=== PATIENT | female | born 1950 | race Caucasian/White ===

== ENCOUNTER 2018-01-24 16:21 | Emergency (ER) | payer OTHER, MEDICARE ==
[~2018-01-24] VITALS: Ht 162.6 cm; Wt 52.9 kg
[2018-01-24 16:33] VITALS: BP 136/69; PULSE 107; RESP 16; TEMP 98.2; O2SAT 88
--- NOTE | 2018-01-24 17:12 | PD ---
HPI Chief Complaint: Cold / Flu Symptoms Time Seen by Provider: 17:07 Travel History International Travel<30 days: No Contact w/Intl Traveler<30days: No Traveled to known affect area: No History of Present Illness HPI 67-year-old female patient with history of smoking, presents to the ER today for several days of shortness of breath, dyspnea on exertion, coughing with brownish phlegm. She denies any fevers, but states she has been having bilateral lower chest pains which hurts with deep breaths and movements. She states that she had recently visited her son and [place] and she states that they had a lot of cats. She does not know of any sick contacts. Modifying Factors: None Associated Signs & Symptoms: Chest discomfort, dyspnea on exertion, coughing Risk Factors: Recent trip to [facility] Past Medical History Medical History: Denies Significant Hx Diminished Hearing: No Tetanus Vaccination: Unknown Influenza Vaccination: No ?: Not Past Surgical History Abdominal Surgery: Yes (HERNIA SURG A CHILD ) Hysterectomy: Yes Tonsillectomy: Yes Social History Alcohol Use: No Tobacco Use: Yes (1PPD) Substance Use: No Allergies-Medications (Allergen,Severity, Reaction): Coded Allergies: No Known Allergies (Unverified Allergy, Unknown, 01/24/18) Reported Meds & Prescriptions Reported Meds & Active Scripts Active No Active Prescriptions or Reported Medications Review of Systems Except as stated in HPI: all other systems reviewed are Neg Physical Exam Narrative GENERAL: Well-developed elderly female patient currently in mild distress. Awake and oriented 3. SKIN: Focused skin assessment warm/dry. HEAD: Atraumatic. Normocephalic. EYES: Pupils equal and round. No scleral icterus. No injection or drainage. ENT: No nasal bleeding or discharge. Mucous membranes pink and moist. NECK: Trachea midline. No JVD. CARDIOVASCULAR: Regular rate and rhythm. No murmur appreciated. RESPIRATORY: No accessory muscle use. Decreased throughout with no crackles or wheezes. Breath sounds equal bilaterally. GASTROINTESTINAL: Abdomen soft, non-tender, nondistended. Hepatic and splenic margins not palpable. MUSCULOSKELETAL: No obvious deformities. No clubbing. No cyanosis. No edema. NEUROLOGICAL: Awake and alert. No obvious cranial nerve deficits. Motor grossly within normal limits. Normal speech. PSYCHIATRIC: Appropriate mood and affect; insight and judgment normal. Data Data Last Documented VS Vital Signs Date Time Temp Pulse Resp B/P (MAP) Pulse Ox O2 Delivery O2 Flow Rate FiO2 01/24/18 19:08 88 Room Air 01/24/18 17:42 2.00 01/24/18 16:33 98.2 107 16 136/69 (91) Orders Orders Complete Blood Count With Diff (01/24/18 17:07) Comprehensive Metabolic Panel (01/24/18 17:07) B-Type Natriuretic Peptide (01/24/18 17:07) D-Dimer (01/24/18 17:07) Ckmb (Isoenzyme) Profile (01/24/18 17:07) Troponin I (01/24/18 17:07) Iv Access Insert/Monitor (01/24/18 17:07) Electrocardiogram (01/24/18 17:07) Ecg Monitoring (01/24/18 17:07) Oximetry (01/24/18 17:07) Oxygen Administration (01/24/18 17:07) Chest, Single Ap (01/24/18 17:07) Sodium Chloride 0.9% Flush (Ns Flush) (01/24/18 17:15) Methylprednisolone So Succ Inj (Solumedr (01/24/18 17:15) Albuterol-Ipratropium Neb (Duoneb Neb) (01/24/18 17:15) Potassium Chloride (Kcl) (01/24/18 18:15) Ct Pulmonary Angiogram (01/24/18 18:03) Iohexol 350 Inj (Omnipaque 350 Inj) (01/24/18 18:53) Ed Discharge Order (01/24/18 19:23) Labs Laboratory Tests Test 01/24/18 17:00 White Blood Count 9.6 TH/MM3 Red Blood Count 3.76 MIL/MM3 Hemoglobin 12.1 GM/DL Hematocrit 35.3 % Mean Corpuscular Volume 94.1 FL Mean Corpuscular Hemoglobin 32.3 PG Mean Corpuscular Hemoglobin Concent 34.3 % Red Cell Distribution Width 12.2 % Platelet Count 216 TH/MM3 Mean Platelet Volume 8.4 FL Neutrophils (%) (Auto) 77.7 % Lymphocytes (%) (Auto) 12.1 % Monocytes (%) (Auto) 6.6 % Eosinophils (%) (Auto) 1.0 % Basophils (%) (Auto) 2.6 % Neutrophils # (Auto) 7.4 TH/MM3 Lymphocytes # (Auto) 1.2 TH/MM3 Monocytes # (Auto) 0.6 TH/MM3 Eosinophils # (Auto) 0.1 TH/MM3 Basophils # (Auto) 0.3 TH/MM3 CBC Comment DIFF FINAL Differential Comment D-Dimer Quantitative (PE/DVT) 2.61 MG/L FEU Blood Urea Nitrogen 18 MG/DL Creatinine 0.76 MG/DL Random Glucose 105 MG/DL Total Protein 7.3 GM/DL Albumin 3.0 GM/DL Calcium Level 8.9 MG/DL Alkaline Phosphatase 91 U/L Aspartate Amino Transf (AST/SGOT) 14 U/L Alanine Aminotransferase (ALT/SGPT) 10 U/L Total Bilirubin 0.7 MG/DL Sodium Level 136 MEQ/L Potassium Level 3.0 MEQ/L Chloride Level 97 MEQ/L Carbon Dioxide Level 32.5 MEQ/L Anion Gap 7 MEQ/L Estimat Glomerular Filtration Rate 76 ML/MIN Total Creatine Kinase 86 U/L Troponin I LESS THAN 0.02 NG/ML B-Type Natriuretic Peptide 28 PG/ML MDM Medical Decision Making Medical Screen Exam Complete: Yes Emergency Medical Condition: Yes Medical Record Reviewed: Yes Interpretation(s) EKG shows NSR, no ST elevation or depression, and no arrhythmias. No significant T-wave inversions. Laboratory Tests Test 01/24/18 17:00 Red Blood Count 3.76 MIL/MM3 (4.00-5.30) Neutrophils (%) (Auto) 77.7 % (16.0-70.0) Basophils (%) (Auto) 2.6 % (0.0-2.0) Basophils # (Auto) 0.3 TH/MM3 (0-0.2) D-Dimer Quantitative (PE/DVT) 2.61 MG/L FEU (0.00-0.50) Albumin 3.0 GM/DL (3.4-5.0) Aspartate Amino Transf (AST/SGOT) 14 U/L (15-37) Potassium Level 3.0 MEQ/L (3.5-5.1) Chloride Level 97 MEQ/L (98-107) Carbon Dioxide Level 32.5 MEQ/L (21.0-32.0) Estimat Glomerular Filtration Rate 76 ML/MIN (>89) Troponin I LESS THAN 0.02 NG/ML Last [address] Angiography 01/24/183 Signed Impressions: Service Date/Time: January 18:43 - CONCLUSION: No evidence of pulmonary embolism. Prevascular, pretracheal and precarinal mediastinal lymphadenopathy of indeterminate etiology. Scattered emphysematous changes and fibrotic scarring. Cardiomegaly and coronary artery calcifications. Biapical pleural thickening and scarring. Jeronimo Carter MD Chest X-Ray 01/24/18 1707 Signed Impressions: Service Date/Time: January 17:14 - CONCLUSION: Normal examination. Mild hyperinflation Edouard Gage MD Differential Diagnosis Dyspnea on exertion, chest discomfort, coughing: URI versus bronchitis versus pneumonia versus COPD versus PE Narrative Course Chest x-ray did not show any signs of acute pulmonary processes. Patient was given Solu-Medrol and nebulizers in the ER. On reevaluation at 6:30 PM, she reports feeling much improved and feels like her shortness of breath is gone away. However, when her oxygen is taken off, her saturations dipped into the high 80s. Her lab work did show an elevated d-dimer and considering her recent trip driving to [place], a CTA was ordered for further evaluation. It did not show any signs of PE. She did have some nonspecific lymphadenopathy around the mediastinum of uncertain etiology. At this point, I have discussed the findings with her and she will need to get follow-up evaluation CAT scans with primary care doctor for the adenopathy. She was ambulatory in the ER and feeling well even though her saturations do drop to the high 80s when she walks. She is not in significant distress after the walk-in I suspect that she may have some underlying chronic COPD. I have discussed smoking cessation with the patient. She will be released at this time, states she wants to go home and is feeling better, to follow-up with primary care physician. She should return for any worsening in symptoms. The plan has been discussed with her and she states understanding. Diagnosis Primary Impression: Tobacco abuse Additional Impressions: Mediastinal lymphadenopathy Bronchitis Med/Other Pt SpecificInfo: Prescription(s) given Scripts Prednisone (Prednisone) 50 Mg Tab 50 MG PO DAILY for 5 Days, #5 TAB 0 Refills Prov: Carolyn Mock MD 01/24/18 Albuterol 6.7 GM Inh (Proventil Hfa 6.7 GM Inh) 90 Mcg/Act Aer 2 PUFF INH Q4-6H Y for SHORTNESS OF BREATH, #1 INHALER 0 Refills Prov: Carolyn Mock MD 01/24/18 Azithromycin (Zithromax Z-Kade) 250 Mg Dspk 250 MG PO DIRECTED for Infection, #1 DSPK 0 Refills 500 MG (2 tabs) day 1, then 1 tab days 2-5. Prov: Carolyn Mock MD 01/24/18 Disposition: 01 DISCHARGE HOME Condition: Stable Carolyn Mock MD Jan 24, 2018 17:12
[2018-01-24] MEDS ORDERED: SODIUM CHLORIDE 0.9% FLUSH 10 ML FLUSH IVF PRN (17:15)
[2018-01-24] MEDS ORDERED: methylPREDNISolone SOD SUCC 125 MG/2 ML VIAL IV PUSH ONE (17:15)
[2018-01-24 17:20] LABS: AUTOMATED NEUTROPHIL # 7.4 TH/MM3 (1.8-7.7); BASOPHIL # 0.3 TH/MM3 (0-0.2); BASOPHIL % 2.6 % (0.0-2.0); EOSINOPHIL # 0.1 TH/MM3 (0-0.4); HEMATOCRIT 35.3 % (35.0-46.0); HEMOGLOBIN 12.1 GM/DL (11.6-15.3); LYMPH % 12.1 % (9.0-44.0); LYMPHOCYTE # 1.2 TH/MM3 (1.0-4.8); MEAN CELL VOLUME 94.1 FL (80.0-100.0); MEAN CORPUSCULAR HEMOGLOBIN 32.3 PG (27.0-34.0); MEAN CORPUSCULAR HGB CONC 34.3 % (32.0-36.0); MEAN PLATELET VOLUME 8.4 FL (7.0-11.0); MONO % 6.6 % (0.0-8.0); MONOCYTE # 0.6 TH/MM3 (0-0.9); NEUT % 77.7 % (16.0-70.0); PLATELET COUNT 216 TH/MM3 (150-450); RED BLOOD COUNT 3.76 MIL/MM3 (4.00-5.30); RED CELL DISTRIBUTION WIDTH 12.2 % (11.6-17.2); WHITE BLOOD COUNT 9.6 TH/MM3 (4.0-11.0)
[2018-01-24 17:28] LABS: CHLORIDE 97 MEQ/L (98-107); SODIUM (NA) 136 MEQ/L (136-145)
[2018-01-24 17:31] LABS: BICARBONATE 32.5 MEQ/L (21.0-32.0); CALCIUM 8.9 MG/DL (8.5-10.1); GLUCOSE,RANDOM 105 MG/DL (74-106)
[2018-01-24] MEDS: RESP: ALBUTEROL 2.5 MG/IPRATROPIUM 0.5 MG NEB (SCH) INH ×2 (17:31→17:32)
[2018-01-24 17:32] LABS: BLOOD UREA NITROGEN 18 MG/DL (7-18)
[2018-01-24 17:34] LABS: ALT (GPT) 10 U/L (10-53)
[2018-01-24 17:35] LABS: AST (GOT) 14 U/L (15-37); CREATININE 0.76 MG/DL (0.50-1.00); GLOMERULAR FILTRATION RATE 76 ML/MIN (>89)
[2018-01-24 17:36] LABS: TOTAL BILIRUBIN ADULT 0.7 MG/DL (0.2-1.0); TOTAL PROTEIN 7.3 GM/DL (6.4-8.2)
[2018-01-24 17:37] LABS: ALKALINE PHOSPHATASE 91 U/L (45-117)
[2018-01-24 17:39] LABS: TROPONIN I LESS THAN 0.02 NG/ML (0.02-0.05)
[2018-01-24 17:42] VITALS: O2SAT 97
--- NOTE | 2018-01-24 17:42 | RADRPT ---
EXAM DATE/TIME: 01/24/2018 17:14 [facility] COMPARISON: No previous studies available for comparison. INDICATIONS : Shortness of breath. MEDICAL HISTORY : None. SURGICAL HISTORY : None. ENCOUNTER: Initial ACUITY: 1 week PAIN SCORE: 0/10 LOCATION: Bilateral chest FINDINGS: A single view of the chest demonstrates the lungs to be symmetrically aerated without evidence of mas s, infiltrate or effusion. The cardiomediastinal contours are unremarkable. Osseous structures are intact. CONCLUSION: Normal examination. Mild hyperinflation Edouard Gage MD on January 24, 2018 at 17:41 Board Certified Radiologist. This report was verified electronically.
[2018-01-24] MEDS ORDERED: POTASSIUM CHLORIDE 10 MEQ CONTROLLED RELEASE TAB PO ONE (18:15)
[2018-01-24] MEDS ORDERED: IOHEXOL 350 MG/ML 10 ML VIAL (for RAD DIAG) IVCONTRAST ONE (18:53)
--- NOTE | 2018-01-24 19:04 | RADRPT ---
EXAM DATE/TIME: 01/24/2018 18:43 [facility] COMPARISON: No previous studies available for comparison. INDICATIONS : Short of breath, chest pain and cough. IV CONTRAST: 75 cc Omnipaque 350 (iohexol) IV RADIATION DOSE: 5.75 CTDIvol (mGy) MEDICAL HISTORY : None SURGICAL HISTORY : Hysterectomy. Hernia surgery. ENCOUNTER: Initial ACUITY: 4 - 6 days PAIN SCALE: 5/10 LOCATION: Bilateral chest TECHNIQUE: Volumetric scanning of the chest was performed using a pulmonary embolism protocol MIP images were re constructed. Using automated exposure control and adjustment of the mA and/or kV according to patien t size, radiation dose was kept as low as reasonably achievable to obtain optimal diagnostic quality images. DICOM format image data is available electronically for review and comparison. Follow-up recommendations for detected pulmonary nodules are based at a minimum on nodule size and pa tient risk factors according to Fleischner Society Guidelines. FINDINGS: PULMONARY ARTERIES: No filling defects are seen in the pulmonary arteries through the segmental level. LUNGS: Scattered emphysematous changes are noted bilaterally. Biapical pleural thickening and scarring is no sadaf. Scattered fibrotic scarring is noted. No pulmonary nodule or mass is noted. PLEURAE: There is no pleural thickening or pleural effusion. MEDIASTINUM: There is evidence of prevascular and pretracheal/precarinal mediastinal lymphadenopathy. The largest lymph node is noted within the precarinal space and measures 2.3 cm in greatest dimension. This is no nspecific. Cardiomegaly and coronary artery calcifications are noted. MUSCULOSKELETAL: Within normal limits for patient age. MISCELLANEOUS: The visualized upper abdominal organs demonstrate no acute abnormality. CONCLUSION: No evidence of pulmonary embolism. Prevascular, pretracheal and precarinal mediastinal lymphadenopath y of indeterminate etiology. Scattered emphysematous changes and fibrotic scarring. Cardiomegaly and coronary artery calcifications. Biapical pleural thickening and scarring. Jeronimo Carter MD on January 24, 2018 at 18:59 Board Certified Radiologist. This report was verified electronically.
[2018-01-24 19:08] VITALS: O2SAT 88
[2018-01-24] MEDS ORDERED: ZITHTAB PO (19:26)
[2018-01-24] MEDS ORDERED: ALBU6.7H INH (19:26)
[2018-01-24] MEDS ORDERED: PRED50 PO (19:26)
[2018-01-24 19:39] VITALS: BP 142/60
--- NOTE | 2018-01-25 08:52 | EKG ---
Date Performed: 01/24/2018 Time Performed: 17:38:36 PTAGE: 67 years EKG: Sinus rhythm POSSIBLE LEFT ATRIAL ENLARGEMENT BORDERLINE ECG NO PREVIOUS TRACING DOCTOR: Sania Quach Interpretating Date/Time 01/25/2018 08:51:18
== END 2018-01-24 19:48 | disposition home or self-care (01) ==
LOC: PHEFT 16:21
DX: R59.1 Generalized enlarged lymph nodes (principal); J40 Bronchitis, not specified as acute or chronic; F17.210 Nicotine dependence, cigarettes, uncomplicated; R94.31 Abnormal electrocardiogram [ECG] [EKG]
CPT/HCPCS: 71045; 71275; 80053; 82550; 83880; 84484; 85025; 85379; 93005; 94640; 94664; 96374; 99285; J2930; Q9967

== ENCOUNTER 2018-02-08 07:40 | Emergency (ER) | payer MEDICARE, OTHER ==
[~2018-02-08] VITALS: Ht 162.6 cm; Wt 54.0 kg
[~2018-02-08 07:40] MED LIST: ALBU6.7H INH; PRED50 PO; ZITHTAB PO
[2018-02-08 07:46] VITALS: BP 169/70; PULSE 84; RESP 16; TEMP 98.6; O2SAT 92
[2018-02-08] MEDS ORDERED: MULTTAB67 PO (08:52)
[2018-02-08] MEDS ORDERED: LIDOCAINE HCL 1% PF 30 ML VIAL ONE (08:59)
[2018-02-08] MEDS ORDERED: DIPHTH/TETANUS/ACEL PERTUSSIS (BOOSTER) 0.5 ML VIAL/PFS IM ONE (09:00)
--- NOTE | 2018-02-08 09:31 | RADRPT ---
EXAM DATE/TIME: 02/08/2018 09:16 [facility] COMPARISON: CHEST SINGLE AP, January 24, 2018, 17:14. INDICATIONS : Right hand, fourth digit laceration from garage door. MEDICAL HISTORY : None. SURGICAL HISTORY : None. ENCOUNTER: Initial ACUITY: 1 day PAIN SCORE: 1/10 LOCATION: Right hand, fourth digit FINDINGS: Two view examination of the right hand demonstrates no soft tissue swelling, dislocation, or fracture . The joint spaces are maintained. Bony mineralization is normal. CONCLUSION: 1. No acute bony abnormality identified. There is soft tissue swelling along fourth digit. No retaine d foreign body is seen. Quirino Babb MD on February 08, 2018 at 9:28 Board Certified Radiologist. This report was verified electronically.
[2018-02-08] MEDS ORDERED: CEPH-460 PO (10:18)
[2018-02-08] MEDS ORDERED: TRAM50TA PO (10:18)
--- NOTE | 2018-02-08 10:18 | PD ---
HPI Chief Complaint: Musculoskeletal Complaint Time Seen by Provider: 08:52 Travel History International Travel<30 days: No Contact w/Intl Traveler<30days: No Traveled to known affect area: No History of Present Illness HPI 67-year-old woman presents emergency department complaining of right ring finger partial fingertip amputation. States she was manually closing her garage door when it got pinched. This happened just prior to arrival. Not up- to-date on tetanus. Complains of mild pain. Bleeding is controlled. No other complaints. History Past Medical History Medical History: Denies Significant Hx Social History Alcohol Use: No Tobacco Use: Yes (1/2PPD) Allergies-Medications (Allergen,Severity, Reaction): Coded Allergies: No Known Allergies (Unverified Allergy, Unknown, 02/08/18) Reported Meds & Prescriptions Reported Meds & Active Scripts Active Reported Multiple Vitamin 1 Tab 1 Tab PO DAILY Review of Systems Except as stated in HPI: all other systems reviewed are Neg Physical Exam Narrative GENERAL: 67-year-old woman, well-appearing, no acute distress. SKIN: Warm and dry. CARDIOVASCULAR: Warm and well perfused. RESPIRATORY: Normal rate and effort. MUSCULOSKELETAL: Focused evaluation of the right hand reveals fingertip amputation just of the very distal tuft of the finger on the right third digit. Function of the fingers completely intact. Fingernails completely intact and unaffected. NEUROLOGICAL: Awake and alert. No gross deficits. Data Data Last Documented VS Vital Signs Date Time Temp Pulse Resp B/P (MAP) Pulse Ox O2 Delivery O2 Flow Rate FiO2 02/08/18 07:46 98.6 84 16 169/70 (103) 92 Room Air Orders Orders Hand, Limited (2vws) (02/08/18 ) Gtux-Iti-Gyjvvc (Booster) Inj (Boostrix (02/08/18 09:00) Lidocaine Pf 1% Inj (Xylocaine-Mpf 1% In (02/08/18 08:59) MDM Medical Decision Making Medical Screen Exam Complete: Yes Emergency Medical Condition: Yes Differential Diagnosis Fingertip injury, amputation, bony injury, other Narrative Course Fingertip amputation. Does not appear to involve the bone. Do not see any bone. Is good coverage. We did do a digital block washed out really well and pulled soft tissue together little bit tighter with a single horizontal mattress suture. Diagnosis Primary Impression: Fingertip amputation Admitting Information Admitting Physician Requests: Admit Patient Instructions: General Instructions Additional Instructions: Take antibiotics as prescribed. Return to the emergency department follow-up with her primary doctor in 7 days for the suture to be removed. Keep fingertip bandage, apply antibiotic ointment to wound twice daily. Return to the emergency department worsening pain swelling redness drainage or any other new or worsening symptoms. Med/Other Pt SpecificInfo: Prescription(s) given Scripts Tramadol (Tramadol) 50 Mg Tab 50 MG PO Q8H Y for PAIN, #12 TAB 0 Refills Prov: Edouard Knight MD 02/08/18 Cephalexin (Keflex) 500 Mg Cap 500 MG PO Q8H for Infection, #21 CAP 0 Refills Prov: Edouard Knight MD 02/08/18 Disposition: 01 DISCHARGE HOME Condition: Stable Edouard Knight MD Feb 08, 2018 10:18
[2018-02-08 10:41] VITALS: BP 202/117; PULSE 114; RESP 20; O2SAT 95
== END 2018-02-08 10:46 | disposition home or self-care (01) ==
LOC: PHED 07:40 → PHEFT 10:46
DX: S68.124A Partial traumatic metacarpophalangeal amputation of right ring finger, initial encounter (principal); F17.200 Nicotine dependence, unspecified, uncomplicated; W23.0XXA Caught, crushed, jammed, or pinched between moving objects, initial encounter
CPT/HCPCS: 12001; 73120; 90471; 90715